=== PATIENT | male | born 1960 | race African-American/Black ===

== ENCOUNTER 2019-12-20 11:56 | Emergency (ER) | payer MEDICARE, OTHER ==
[~2019-12-20 11:56] MED LIST: METH10 PO
[2019-12-20 12:21] LABS: BASOPHILS % (AUTO) 0.4 % (0.0-2.0); EOSINOPHILS % (AUTO) 0 % (1.0-6.0); HEMATOCRIT 36.1 % (41-53); HEMOGLOBIN 12.2 g/dL (13.5-17.5); LYMPHOCYTES # (AUTO) 0.9 K/uL (1.0-4.8); LYMPHOCYTES % (AUTO) 9.2 % (22.0-44.0); MEAN CORPUSCULAR HEMOGLOBIN 34.7 pg (26.0-34.0); MEAN CORPUSCULAR HGB CONC 33.8 G/dL (31.0-37.0); MEAN CORPUSCULAR VOLUME 103 fL (80-100); MONOCYTES # (AUTO) 0.6 K/uL (0.1-1.0); MONOCYTES % (AUTO) 6.1 % (2.0-9.0); NEUTROPHILS # (AUTO) 8.6 K/uL (1.8-7.7); NEUTROPHILS % (AUTO) 84.3 % (40.0-70.0); PLATELET COUNT (AUTO) 271 K/uL (150-450); RED BLOOD CELL COUNT(AUTO) 3.52 MIL/uL (4.50-5.90); RED CELL DISTRIBUTION WIDTH 15.7 % (11.5-14.5)
[2019-12-20 12:30] LABS: ANION GAP 5 mmol/L (8-16); CALCIUM, TOTAL 8.8 mg/dL (8.8-10.5); CARBON DIOXIDE 34 mmol/L (22-29); CHLORIDE 93 mmol/L (98-107); GLOMERULAR FILTR. RATE CALC > 60 mL/min (>60); GLUCOSE,RANDOM 229 mg/dL (70-110); SODIUM SERUM 132 mmol/L (136-145); UREA NITROGEN, BLOOD 6 mg/dL (7-18)
[2019-12-20] MEDS ORDERED: ALTEPLASE PER STROKE PROTOCOL CLINICAL ONE (12:30)
[2019-12-20 12:35] LABS: INR 1.1 (0.9-1.1); PROTHROMBIN TIME 11.7 SEC (9.4-11.6)
[2019-12-20 12:36] LABS: ALANINE AMINOTRANSFERASE 44 U/L (12-78); ALBUMIN 2.1 g/dL (3.4-5.0); ALKALINE PHOSPHATASE 226 U/L (46-116); ASPARTATE AMINOTRANSFERASE 82 U/L (15-37); BILIRUBIN,TOTAL 0.8 mg/dL (0.1-1.0); TOTAL PROTEIN, SERUM 6.7 g/dL (6.4-8.2)
[2019-12-20] MEDS ORDERED: ALTEPLASE 81 MG in WATER FOR INJECTION,STERILE 81 ML IV ONE (12:45)
[2019-12-20] MEDS ORDERED: ALTEPLASE 9 MG in WATER FOR INJECTION,STERILE 9 ML IV ONE (12:45)
[2019-12-20] MEDS ORDERED: IOVERSOL 350 MG/ML 100 ML VIAL ONE (12:52)
[2019-12-20] MEDS ORDERED: SODIUM CHLORIDE 0.9% 100 ML ONE (12:52)
[2019-12-20 12:53] LABS: APPEARANCE,URINE CLOUDY (CLEAR); GLUCOSE, URINE (UA) NEGATIVE (NEGATIVE); KETONES,URINE TRACE mg/dL (NEGATIVE); LEUKOCYTE ESTERASE ,URINE SMALL (NEGATIVE); NITRATE,URINE NEGATIVE (NEGATIVE); OCCULT BLOOD,URINE SMALL (NEGATIVE); PROTEIN,URINE POS 1+ (NEGATIVE)
[2019-12-20 12:55] LABS: BILIRUBIN,URINE PRELIM. POSITIVE (NEGATIVE)
[2019-12-20 12:59] LABS: AMPHET/METH SCREEN,URINE NEGATIVE (NEGATIVE); BARBITURATE SCREEN, URINE NEGATIVE (NEGATIVE); BENZODIAZEPINES SCREEN,URINE POSITIVE (NEGATIVE); CANNABINOID SCREEN,URINE NEGATIVE (NEGATIVE); COCAINE SCREEN,URINE NEGATIVE (NEGATIVE); METHADONE SCREEN, URINE POSITIVE (NEGATIVE); OPIATE SCREEN,URINE POSITIVE (NEGATIVE); PHENCYCLIDINE SCREEN,URINE NEGATIVE (NEGATIVE)
[2019-12-20 13:01] LABS: BACTERIA,URINE Few /HPF (None Seen); SQUAMOUS EPITHELIAL CELL,UR Few /LPF (None Seen)
[2019-12-20] MEDS ORDERED: 0.9% SODIUM CHLORIDE 10 ML SYRINGE IVP PRN (13:30)
[2019-12-20] MEDS ORDERED: ACETAMINOPHEN 325 MG TABLET PO PRN ×2 (13:30→14:15)
[2019-12-20] MEDS ORDERED: ONDANSETRON HCL 4 MG/2 ML VIAL IVP PRN ×2 (13:30→14:15)
[2019-12-20 14:10] VITALS: BP 182/94
[2019-12-20] MEDS ORDERED: HYDROCODONE/ACETAMINOPHEN 5-325 MG TABLET PO PRN (14:15)
[2019-12-20] MEDS ORDERED: MAGNESIUM HYDROXIDE SUSPENSION 30 ML UDCUP PO PRN (14:15)
[2019-12-20] MEDS ORDERED: MORPHINE SULFATE 2 MG/ML SYRINGE IVP PRN (14:15)
[2019-12-20] MEDS ORDERED: ZOLPIDEM TARTRATE 5 MG TABLET PO PRN (14:15)
[2019-12-20] MEDS ORDERED: BISACODYL 10 MG RECTAL RECTAL SUPPOSITORY PR PRN (14:15)
[2019-12-20] MEDS ORDERED: POTASSIUM CHL 10 MEQ/WATER 50 ML IV PRN (14:30)
[2019-12-20] MEDS ORDERED: POTASSIUM CHLORIDE 20 MEQ ER TABLET PO PRN (14:30)
[2019-12-20] MEDS ORDERED: HydrALAZINE HCL 20 MG/ML VIAL IVP PRN (14:30)
[2019-12-20] MEDS ORDERED: ATORVASTATIN CALCIUM 20 MG TABLET PO SCH (21:00)
[2019-12-20] MEDS ORDERED: DOCUSATE SODIUM 100 MG CAPSULE PO SCH (21:00)
[2019-12-21] MEDS ORDERED: PANTOPRAZOLE SODIUM 40 MG DR TABLET PO SCH (09:00)
== END 2019-12-20 15:10 | disposition home or self-care (01) ==
LOC: EMS 11:58
DX: I63.9 Cerebral infarction, unspecified (principal); I82.403 Acute embolism and thrombosis of unspecified deep veins of lower extremity, bilateral; E87.6 Hypokalemia; R79.89 Other specified abnormal findings of blood chemistry; I10 Essential (primary) hypertension
CPT/HCPCS: 36415; 37195; 70450; 70496; 71045; 80053; 80307; 81001; 82962; 83036; 83880; 84484; 85025; 85610; 85730; 86850; 86900; 86901; 87077; 87086; 93005; 93970; 99291; 99292; J2997; J7050; Q9967

== ENCOUNTER 2020-05-30 08:41 | Emergency (ER) | payer MEDICARE, OTHER ==
[~2020-05-30] VITALS: Ht 167.6 cm; Wt 72.7 kg
[2020-05-30] MEDS ORDERED: ACETAMINOPHEN 500 MG TABLET PO ONE (10:15)
[2020-05-30] MEDS ORDERED: LEVE500S9 PO (10:16)
[2020-05-30] MEDS ORDERED: LISI-662 PO (10:16)
[2020-05-30] MEDS ORDERED: METO25 PO (10:16)
[2020-05-30] MEDS ORDERED: ASPI81TA39 PO (10:16)
[2020-05-30] MEDS ORDERED: FAMO20 PO (10:16)
[2020-05-30] MEDS ORDERED: AMLO-258 PO (10:16)
[2020-05-30] MEDS ORDERED: ATOR40TA28 PO (10:16)
[2020-05-30 10:26] LABS: GLUCOSE,POINT OF CARE 86 MG/DL (70-110)
[2020-05-30 10:35] LABS: EOSINOPHILS % (AUTO) 0.8 % (1.0-6.0); HEMATOCRIT 27.7 % (41-53); LYMPHOCYTES # (AUTO) 0.6 K/uL (1.0-4.8); LYMPHOCYTES % (AUTO) 19.1 % (22.0-44.0); MEAN CORPUSCULAR HEMOGLOBIN 28.8 pg (26.0-34.0); MEAN CORPUSCULAR HGB CONC 32.6 G/dL (31.0-37.0); MEAN CORPUSCULAR VOLUME 89 fL (80-100); MONOCYTES # (AUTO) 0.4 K/uL (0.1-1.0); MONOCYTES % (AUTO) 11.4 % (2.0-9.0); NEUTROPHILS # (AUTO) 2.1 K/uL (1.8-7.7); NEUTROPHILS % (AUTO) 67.7 % (40.0-70.0); PLATELET COUNT (AUTO) 134 K/uL (150-450); RED BLOOD CELL COUNT(AUTO) 3.13 MIL/uL (4.50-5.90); RED CELL DISTRIBUTION WIDTH 15.8 % (11.5-14.5)
[2020-05-30 10:43] LABS: ANION GAP 10 mmol/L (8-16); CALCIUM, TOTAL 8.7 mg/dL (8.8-10.5); CARBON DIOXIDE 27 mmol/L (22-29); CHLORIDE 101 mmol/L (98-107); CREATININE 1.18 mg/dL (0.60-1.30); GLOMERULAR FILTR. RATE CALC > 60 mL/min (>60); GLUCOSE,RANDOM 96 mg/dL (70-110); POTASSIUM 3.9 mmol/L (3.5-5.1); SODIUM SERUM 138 mmol/L (136-145); UREA NITROGEN, BLOOD 14 mg/dL (7-18)
[2020-05-30 10:49] LABS: ALANINE AMINOTRANSFERASE 41 U/L (12-78); ALKALINE PHOSPHATASE 89 U/L (46-116); ASPARTATE AMINOTRANSFERASE 53 U/L (15-37); BILIRUBIN,TOTAL 0.5 mg/dL (0.1-1.0); PHOSPHORUS 2.9 mg/dL (2.5-4.9); TOTAL PROTEIN, SERUM 6.8 g/dL (6.4-8.2)
[2020-05-30 11:36] LABS: COVID AG,FIA SOURCE NASOPHARYNGEAL
[2020-05-30 11:40] LABS: APPEARANCE,URINE CLEAR (CLEAR); BILIRUBIN,URINE NEGATIVE (NEGATIVE); GLUCOSE, URINE (UA) NEGATIVE (NEGATIVE); KETONES,URINE TRACE mg/dL (NEGATIVE); LEUKOCYTE ESTERASE ,URINE NEGATIVE (NEGATIVE); NITRATE,URINE NEGATIVE (NEGATIVE); OCCULT BLOOD,URINE NEGATIVE (NEGATIVE); PROTEIN,URINE NEGATIVE (NEGATIVE); UROBILINOGEN,URINE 0.2 mg/dL (<=1.0)
[2020-05-30 14:50] VITALS: BP 135/63
== END 2020-05-30 14:58 | disposition home or self-care (01) ==
LOC: EMS 08:53
DX: U07.1 COVID-19 (principal); R25.2 Cramp and spasm; R50.9 Fever, unspecified; F41.9 Anxiety disorder, unspecified; I10 Essential (primary) hypertension; Z86.73 Personal history of transient ischemic attack (TIA), and cerebral infarction without residual deficits; Z79.899 Other long term (current) drug therapy
CPT/HCPCS: 36415; 80053; 81003; 82962; 83735; 84100; 85025; 87426; 99283; U0003

== ENCOUNTER 2020-07-15 23:01 | Inpatient (IN) | payer MEDICARE, OTHER ==
[~2020-07-15] VITALS: Ht 182.9 cm; Wt 76.5 kg
[~2020-07-15 23:01] MED LIST changes: +AMLO-258 PO; +ASPI81TA39 PO; +ATOR40TA28 PO; +FAMO20 PO; +LEVE500S9 PO; +LISI-894 PO; +METO25 PO
[2020-07-15] MEDS ORDERED: BISACODYL 5 MG EC TABLET PO ONE (23:45)
[2020-07-16 00:49] LABS: HEMATOCRIT 30.3 % (41-53); HEMOGLOBIN 9.7 g/dL (13.5-17.5); MEAN CORPUSCULAR HEMOGLOBIN 28.2 pg (26.0-34.0); MEAN CORPUSCULAR VOLUME 88 fL (80-100); PLATELET COUNT (AUTO) 173 K/uL (150-450); RED BLOOD CELL COUNT(AUTO) 3.43 MIL/uL (4.50-5.90); RED CELL DISTRIBUTION WIDTH 15.8 % (11.5-14.5)
[2020-07-16 01:06] LABS: CREATININE 1.76 mg/dL (0.60-1.30); POTASSIUM 4.5 mmol/L (3.5-5.1)
[2020-07-16 01:12] LABS: ALBUMIN 3.5 g/dL (3.4-5.0); BILIRUBIN,TOTAL 0.3 mg/dL (0.1-1.0); TOTAL PROTEIN, SERUM 6.8 g/dL (6.4-8.2)
[2020-07-16 01:20] LABS: BAND NEUTROPHILS % (MANUAL) 31 % (0-5); LYMPHOCYTES % (MANUAL) 5 % (22-44); MONOCYTES % (MANUAL) 3 % (2-9); SEGMENTED NEUTROPHILS % 61 % (40-70)
[2020-07-16] MEDS ORDERED: LORazepam 2 MG TABLET PO ONE (01:45)
[2020-07-16] MEDS ORDERED: KETOROLAC TROMETHAMINE 30 MG/ML VIAL IM ONE (01:45)
[2020-07-16] MEDS: SODIUM CHLORIDE 0.9% 1,000 ML IV ONE ×2 (01:46→02:18)
[2020-07-16] MEDS ORDERED: LORazepam 2 MG/ML VIAL IVP ONE (03:15)
[2020-07-16] MEDS ORDERED: FAMOTIDINE 10 MG/ML 2 ML VIAL IVP ONE (03:15)
[2020-07-16] MEDS ORDERED: SODIUM CHLORIDE 0.9% 1,000 ML IV ONE ×4 (04:00→05:15)
[2020-07-16] MEDS ORDERED: MetroNIDAZOLE 750 MG/NACL 150 ML IV ONE (04:15)
[2020-07-16 04:21] LABS: PROTHROMBIN TIME 11.1 SEC (9.4-11.6)
[2020-07-16] MEDS ORDERED: PIPERACILLIN/TAZO 3.375 GM/D5W 50 ML IV SCH (04:30)
[2020-07-16 04:50] LABS: COVID AG,FIA SOURCE NASOPHARYNGEAL
[2020-07-16] MEDS ORDERED: PHENYLEPHRINE HCL 400 MG in DEXTROSE 5%-WATER 210 ML IV PRN (05:00)
[2020-07-16] MEDS ORDERED: RINGERS SOLUTION,LACTATED 2,000 ML IV ONE (05:15)
[2020-07-16] MEDS ORDERED: ACETAMINOPHEN 325 MG TABLET PO PRN ×2 (05:15→08:15)
[2020-07-16] MEDS ORDERED: ACETAMINOPHEN 1000 MG/ISO-OSM 100 ML IV ONE (05:15)
[2020-07-16] MEDS ORDERED: ONDANSETRON HCL 4 MG/2 ML VIAL IVP PRN ×3 (05:15→08:15)
[2020-07-16] MEDS ORDERED: SODIUM CHLORIDE 0.9% 100 ML ONE (05:19)
[2020-07-16] MEDS ORDERED: BUPIVACAINE HCL/PF 0.5% 30 ML VIAL ONE (05:33)
[2020-07-16] MEDS ORDERED: LIDOCAINE 2% 30 ML JELLY ONE (05:33)
[2020-07-16] MEDS ORDERED: LIDOCAINE/PF 2% 5 ML VIAL ONE (05:34)
[2020-07-16 05:48] LABS: APPEARANCE,URINE TURBID (CLEAR); BILIRUBIN,URINE NEGATIVE (NEGATIVE); GLUCOSE, URINE (UA) NEGATIVE (NEGATIVE); KETONES,URINE NEGATIVE (NEGATIVE); LEUKOCYTE ESTERASE ,URINE NEGATIVE (NEGATIVE); NITRATE,URINE NEGATIVE (NEGATIVE); OCCULT BLOOD,URINE LARGE (NEGATIVE); PROTEIN,URINE NEGATIVE (NEGATIVE); UROBILINOGEN,URINE 0.2 mg/dL (<=1.0)
[2020-07-16] MEDS ORDERED: HYDROmorphone 2 MG/ML VIAL IVP PRN (07:15)
[2020-07-16] MEDS ORDERED: BUPIVACAINE LIPOSOME/PF 1.3%-13.3MG/ML SUSPENSION 20 ML VIAL INJ ONE (07:15)
[2020-07-16] MEDS ORDERED: FentaNYL CITRATE PF 100 MCG/2 ML VIAL IVP PRN (07:15)
[2020-07-16] MEDS ORDERED: MORPHINE SULFATE 2 MG/ML SYRINGE IVP PRN (07:15)
[2020-07-16 07:34] LABS: BACTERIA,URINE Moderate /HPF (None Seen); WBC,URINE 0-2 /HPF (0-5)
[2020-07-16] MEDS: OXYGEN THERAPY IH SCH ×2 (08:00→20:44)
[2020-07-16] MEDS ORDERED: BISACODYL 10 MG RECTAL RECTAL SUPPOSITORY PR PRN (08:15)
[2020-07-16] MEDS ORDERED: MAGNESIUM HYDROXIDE SUSPENSION 30 ML UDCUP PO PRN (08:15)
[2020-07-16] MEDS: METOPROLOL TARTRATE 25 MG TABLET PO SCH ×2 (09:00→20:45)
[2020-07-16] MEDS: LISINOPRIL 20 MG TABLET PO SCH (09:00)
[2020-07-16] MEDS: DOCUSATE SODIUM 100 MG CAPSULE PO SCH ×2 (09:00→20:45)
[2020-07-16] MEDS ORDERED: LevETIRAcetam 100 MG/ML 5 ML SOLUTION UDCUP PO SCH (09:00)
[2020-07-16] MEDS: ASPIRIN 81 MG CHEWABLE TABLET PO SCH (09:00)
[2020-07-16] MEDS: PANTOPRAZOLE SODIUM 40 MG DR TABLET PO SCH (09:00)
[2020-07-16] MEDS: AmLODIPine BESYLATE 10 MG TABLET PO SCH (09:00)
[2020-07-16 09:27] VITALS: BP 144/63
[2020-07-16 10:22] LABS: APPEARANCE,URINE TURBID (CLEAR); BILIRUBIN,URINE NEGATIVE (NEGATIVE); GLUCOSE, URINE (UA) NEGATIVE (NEGATIVE); KETONES,URINE NEGATIVE (NEGATIVE); NITRATE,URINE NEGATIVE (NEGATIVE); OCCULT BLOOD,URINE LARGE (NEGATIVE); PROTEIN,URINE POS 1+ (NEGATIVE); UROBILINOGEN,URINE 0.2 mg/dL (<=1.0)
[2020-07-16 10:39] LABS: LEUKOCYTE ESTERASE ,URINE SMALL (NEGATIVE); RBC,URINE 51-100 /HPF (0-2)
[2020-07-16 10:40] LABS: BACTERIA,URINE Moderate /HPF (None Seen); SQUAMOUS EPITHELIAL CELL,UR Moderate /LPF (None Seen); YEAST,URINE Rare /HPF (None Seen)
[2020-07-16] MEDS: PIPERACILLIN/TAZO 3.375 GM/D5W 50 ML IV SCH ×3 (10:56→22:43)
[2020-07-16] MEDS: HYDROmorphone 2 MG/ML VIAL IVP PRN ×2 (16:04→20:50)
[2020-07-16 16:05] VITALS: BP 151/76
[2020-07-16] MEDS: HEPARIN SODIUM,PORCINE 5,000 UNITS/ML VIAL SQ SCH (16:30)
[2020-07-16] MEDS ORDERED: DEXTROSE 5%-0.45% SODIUM CHL 1,000 ML IV ONE (16:30)
[2020-07-16] MEDS ORDERED: LABETALOL HCL 5 MG/ML 20 ML VIAL IVP PRN (17:30)
[2020-07-16] MEDS: LevETIRAcetam 1,000 MG in DEXTROSE 5%-WATER 100 ML IV SCH (19:11)
[2020-07-16 20:10] VITALS: BP 138/66
[2020-07-16] MEDS: ATORVASTATIN CALCIUM 40 MG TABLET PO SCH (20:45)
[2020-07-16 22:06] VITALS: BP 143/68
[2020-07-16] MEDS: MORPHINE SULFATE 2 MG/ML SYRINGE IVP PRN (22:08)
[2020-07-16] MEDS ORDERED: SODIUM CHLORIDE 0.9% 500 ML IV ONE (22:39)
[2020-07-17] MEDS: HEPARIN SODIUM,PORCINE 5,000 UNITS/ML VIAL SQ SCH ×4 (00:19→23:54)
[2020-07-17] MEDS: HYDROmorphone 2 MG/ML VIAL IVP PRN ×5 (00:19→21:35)
[2020-07-17] MEDS: PIPERACILLIN/TAZO 3.375 GM/D5W 50 ML IV SCH ×4 (03:44→22:56)
[2020-07-17 05:11] VITALS: BP 158/74
[2020-07-17 06:04] LABS: BASOPHILS % (AUTO) 0.3 % (0.0-2.0); EOSINOPHILS % (AUTO) 0.5 % (1.0-6.0); HEMATOCRIT 28.4 % (41-53); HEMOGLOBIN 8.9 g/dL (13.5-17.5); LYMPHOCYTES % (AUTO) 11.6 % (22.0-44.0); MEAN CORPUSCULAR HEMOGLOBIN 28.7 pg (26.0-34.0); MEAN CORPUSCULAR HGB CONC 31.2 G/dL (31.0-37.0); MEAN CORPUSCULAR VOLUME 92 fL (80-100); MONOCYTES # (AUTO) 0.4 K/uL (0.1-1.0); MONOCYTES % (AUTO) 4.5 % (2.0-9.0); NEUTROPHILS # (AUTO) 7.4 K/uL (1.8-7.7); NEUTROPHILS % (AUTO) 83.1 % (40.0-70.0); PLATELET COUNT (AUTO) 143 K/uL (150-450); RED BLOOD CELL COUNT(AUTO) 3.08 MIL/uL (4.50-5.90); RED CELL DISTRIBUTION WIDTH 16.7 % (11.5-14.5)
[2020-07-17] MEDS ORDERED: 0.9% SODIUM CHLORIDE 10 ML VIAL IVP ONE (06:51)
[2020-07-17] MEDS ORDERED: ONDANSETRON HCL 4 MG/2 ML VIAL IVP ONE (06:51)
[2020-07-17] MEDS ORDERED: MIDAZOLAM HCL 2 MG/2 ML VIAL IVP ONE (06:51)
[2020-07-17] MEDS ORDERED: FentaNYL CITRATE PF 100 MCG/2 ML VIAL IVP ONE (06:51)
[2020-07-17] MEDS ORDERED: SUCCINYLCHOLINE CHLORIDE 20 MG/ML 10 ML VIAL IVP ONE (06:51)
[2020-07-17] MEDS ORDERED: LIDOCAINE/PF 2% 5 ML VIAL IM ONE (06:51)
[2020-07-17] MEDS ORDERED: HYDROmorphone 2 MG/ML VIAL IVP ONE (06:51)
[2020-07-17] MEDS ORDERED: ROCURONIUM BROMIDE 10 MG/ML 5 ML VIAL IVP ONE (06:51)
[2020-07-17] MEDS ORDERED: PHENYLEPHRINE HCL 10 MG/ML VIAL IVP ONE (06:51)
[2020-07-17] MEDS ORDERED: EPHEDrine SULFATE 50 MG/ML VIAL IM ONE (06:51)
[2020-07-17] MEDS ORDERED: PROPOFOL 1% 20 ML VIAL IVP ONE (06:51)
[2020-07-17] MEDS ORDERED: NEOSTIGMINE METHYLSULFATE 1 MG/ML 10 ML VIAL IVP ONE (06:51)
[2020-07-17 06:58] LABS: ANION GAP 9 mmol/L (8-16); CALCIUM, TOTAL 8.5 mg/dL (8.8-10.5); CARBON DIOXIDE 22 mmol/L (22-29); CHLORIDE 106 mmol/L (98-107); CREATININE 1.19 mg/dL (0.60-1.30); GLOMERULAR FILTR. RATE CALC > 60 mL/min (>60); GLUCOSE,RANDOM 115 mg/dL (70-110); POTASSIUM 4.6 mmol/L (3.5-5.1); SODIUM SERUM 137 mmol/L (136-145); UREA NITROGEN, BLOOD 18 mg/dL (7-18)
[2020-07-17 07:40] VITALS: BP 148/70
[2020-07-17] MEDS: OXYGEN THERAPY IH SCH ×2 (08:00→20:26)
[2020-07-17] MEDS: METOPROLOL TARTRATE 25 MG TABLET PO SCH ×2 (08:55→21:00)
[2020-07-17] MEDS: ASPIRIN 81 MG CHEWABLE TABLET PO SCH (08:55)
[2020-07-17] MEDS: DOCUSATE SODIUM 100 MG CAPSULE PO SCH ×2 (08:55→21:00)
[2020-07-17] MEDS: PANTOPRAZOLE SODIUM 40 MG DR TABLET PO SCH (08:56)
[2020-07-17] MEDS: LISINOPRIL 20 MG TABLET PO SCH (08:56)
[2020-07-17] MEDS: AmLODIPine BESYLATE 10 MG TABLET PO SCH (08:56)
[2020-07-17 11:02] VITALS: BP 152/74
[2020-07-17] MEDS: PANTOPRAZOLE SODIUM 40 MG/VIAL IVP SCH (15:24)
[2020-07-17 15:36] VITALS: BP 146/66
[2020-07-17] MEDS: MORPHINE SULFATE 2 MG/ML SYRINGE IVP PRN (17:30)
[2020-07-17] MEDS: LevETIRAcetam 1,000 MG in DEXTROSE 5%-WATER 100 ML IV SCH (18:28)
[2020-07-17 19:08] VITALS: BP 150/66
[2020-07-17] MEDS: ATORVASTATIN CALCIUM 40 MG TABLET PO SCH (21:00)
[2020-07-18] VITALS (7 sets, daily range): BP systolic 137–154; BP diastolic 43–77
[2020-07-18] MEDS: PIPERACILLIN/TAZO 3.375 GM/D5W 50 ML IV SCH ×4 (04:43→22:35)
[2020-07-18] MEDS: HYDROCODONE/ACETAMINOPHEN 5-325 MG TABLET PO PRN ×2 (05:46→12:12)
[2020-07-18] MEDS: OXYGEN THERAPY IH SCH ×2 (08:00→20:41)
[2020-07-18] MEDS: PANTOPRAZOLE SODIUM 40 MG/VIAL IVP SCH (08:48)
[2020-07-18] MEDS: LISINOPRIL 20 MG TABLET PO SCH (08:49)
[2020-07-18] MEDS: HEPARIN SODIUM,PORCINE 5,000 UNITS/ML VIAL SQ SCH ×2 (08:49→16:55)
[2020-07-18] MEDS: DOCUSATE SODIUM 100 MG CAPSULE PO SCH ×2 (08:49→20:42)
[2020-07-18] MEDS: AmLODIPine BESYLATE 10 MG TABLET PO SCH (08:49)
[2020-07-18] MEDS: ASPIRIN 81 MG CHEWABLE TABLET PO SCH (08:49)
[2020-07-18] MEDS: METOPROLOL TARTRATE 25 MG TABLET PO SCH ×2 (08:49→20:41)
[2020-07-18] MEDS: CefTRIAXone 1 GM/DEXTROSE 50 ML IV SCH (14:18)
[2020-07-18] MEDS: LevETIRAcetam 1,000 MG in DEXTROSE 5%-WATER 100 ML IV SCH (18:37)
[2020-07-18] MEDS: MORPHINE SULFATE 2 MG/ML SYRINGE IVP PRN (20:41)
[2020-07-18] MEDS: ATORVASTATIN CALCIUM 40 MG TABLET PO SCH (20:42)
[2020-07-19] MEDS: HEPARIN SODIUM,PORCINE 5,000 UNITS/ML VIAL SQ SCH ×5 (00:23→22:22)
[2020-07-19] MEDS: ZOLPIDEM TARTRATE 5 MG TABLET PO PRN ×2 (00:39→20:47)
[2020-07-19] MEDS: PIPERACILLIN/TAZO 3.375 GM/D5W 50 ML IV SCH ×4 (04:39→21:32)
[2020-07-19 04:58] VITALS: BP 131/62
[2020-07-19] MEDS: MORPHINE SULFATE 2 MG/ML SYRINGE IVP PRN ×2 (06:51→18:46)
[2020-07-19 07:01] VITALS: BP 143/60
[2020-07-19] MEDS: OXYGEN THERAPY IH SCH (08:00)
[2020-07-19] MEDS: PANTOPRAZOLE SODIUM 40 MG/VIAL IVP SCH (08:50)
[2020-07-19] MEDS: DOCUSATE SODIUM 100 MG CAPSULE PO SCH ×2 (08:50→20:19)
[2020-07-19] MEDS: ASPIRIN 81 MG CHEWABLE TABLET PO SCH (08:50)
[2020-07-19] MEDS: METOPROLOL TARTRATE 25 MG TABLET PO SCH ×2 (08:51→21:33)
[2020-07-19] MEDS: AmLODIPine BESYLATE 10 MG TABLET PO SCH (08:51)
[2020-07-19] MEDS: LISINOPRIL 20 MG TABLET PO SCH (08:51)
[2020-07-19 09:42] LABS: BASOPHILS % (AUTO) 0.6 % (0.0-2.0); EOSINOPHILS % (AUTO) 1.8 % (1.0-6.0); HEMATOCRIT 28.8 % (41-53); HEMOGLOBIN 9.5 g/dL (13.5-17.5); LYMPHOCYTES # (AUTO) 1.8 K/uL (1.0-4.8); LYMPHOCYTES % (AUTO) 23.7 % (22.0-44.0); MEAN CORPUSCULAR HEMOGLOBIN 28.3 pg (26.0-34.0); MEAN CORPUSCULAR VOLUME 86 fL (80-100); MONOCYTES # (AUTO) 0.4 K/uL (0.1-1.0); NEUTROPHILS # (AUTO) 5.1 K/uL (1.8-7.7); NEUTROPHILS % (AUTO) 68.9 % (40.0-70.0); PLATELET COUNT (AUTO) 185 K/uL (150-450); RED BLOOD CELL COUNT(AUTO) 3.36 MIL/uL (4.50-5.90); RED CELL DISTRIBUTION WIDTH 15.4 % (11.5-14.5)
[2020-07-19 09:56] LABS: ANION GAP 9 mmol/L (8-16); CALCIUM, TOTAL 8.3 mg/dL (8.8-10.5); CARBON DIOXIDE 25 mmol/L (22-29); CHLORIDE 108 mmol/L (98-107); CREATININE 1.17 mg/dL (0.60-1.30); GLOMERULAR FILTR. RATE CALC > 60 mL/min (>60); GLUCOSE,RANDOM 96 mg/dL (70-110); POTASSIUM 3.4 mmol/L (3.5-5.1); SODIUM SERUM 142 mmol/L (136-145); UREA NITROGEN, BLOOD 11 mg/dL (7-18)
[2020-07-19 11:09] VITALS: BP 137/61
[2020-07-19] MEDS ORDERED: POTASSIUM CHL 10 MEQ/WATER 50 ML IV PRN (11:30)
[2020-07-19] MEDS ORDERED: LEVE500T53 PO (11:32)
[2020-07-19] MEDS: CefTRIAXone 1 GM/DEXTROSE 50 ML IV SCH (13:25)
[2020-07-19] MEDS: POTASSIUM CHLORIDE 20 MEQ ER TABLET PO PRN ×2 (13:25→18:46)
[2020-07-19 15:51] VITALS: BP 136/57
[2020-07-19] MEDS: LevETIRAcetam 1,000 MG in DEXTROSE 5%-WATER 100 ML IV SCH (18:46)
[2020-07-19 19:54] VITALS: BP 137/57
[2020-07-19] MEDS: ATORVASTATIN CALCIUM 40 MG TABLET PO SCH (20:16)
[2020-07-19] MEDS: HYDROCODONE/ACETAMINOPHEN 5-325 MG TABLET PO PRN (20:16)
[2020-07-19 23:45] VITALS: BP 116/52
[2020-07-20] MEDS: MORPHINE SULFATE 2 MG/ML SYRINGE IVP PRN ×2 (00:42→08:33)
[2020-07-20] MEDS: PIPERACILLIN/TAZO 3.375 GM/D5W 50 ML IV SCH ×2 (03:06→10:07)
[2020-07-20] MEDS: HYDROCODONE/ACETAMINOPHEN 5-325 MG TABLET PO PRN ×2 (03:10→11:53)
[2020-07-20 04:14] VITALS: BP 133/51
[2020-07-20 07:35] VITALS: BP 122/58
[2020-07-20] MEDS: OXYGEN THERAPY IH SCH ×2 (08:00→09:34)
[2020-07-20] MEDS: AmLODIPine BESYLATE 10 MG TABLET PO SCH (08:31)
[2020-07-20] MEDS: ASPIRIN 81 MG CHEWABLE TABLET PO SCH (08:32)
[2020-07-20] MEDS: LISINOPRIL 20 MG TABLET PO SCH (08:32)
[2020-07-20] MEDS: METOPROLOL TARTRATE 25 MG TABLET PO SCH (08:32)
[2020-07-20] MEDS: HEPARIN SODIUM,PORCINE 5,000 UNITS/ML VIAL SQ SCH (08:33)
[2020-07-20] MEDS: PANTOPRAZOLE SODIUM 40 MG/VIAL IVP SCH (08:33)
[2020-07-20] MEDS: DOCUSATE SODIUM 100 MG CAPSULE PO SCH (08:36)
[2020-07-20 11:32] VITALS: BP 114/50
[2020-07-20] MEDS: CefTRIAXone 1 GM/DEXTROSE 50 ML IV SCH (12:00)
== END 2020-07-20 13:35 | DRG 329 ==
LOC: EMS 23:01 → 6N 07-16 05:02 → 5S 07-16 20:52
PROVIDERS: ADMIT Internal Medicine; ATTEND Internal Medicine
PROC: 0DTF0ZZ Resection of Right Large Intestine, Open Approach (ICD-10-PCS; principal; 2020-07-16 06:00)
DX: K55.9 Vascular disorder of intestine, unspecified (principal); R65.11 Systemic inflammatory response syndrome (SIRS) of non-infectious origin with acute organ dysfunction; N17.9 Acute kidney failure, unspecified; E44.0 Moderate protein-calorie malnutrition; N39.0 Urinary tract infection, site not specified; I69.354 Hemiplegia and hemiparesis following cerebral infarction affecting left non-dominant side; I96 Gangrene, not elsewhere classified; D63.8 Anemia in other chronic diseases classified elsewhere; I10 Essential (primary) hypertension; E87.6 Hypokalemia; F40.240 Claustrophobia; F11.11 Opioid abuse, in remission; Z20.822 Contact with and (suspected) exposure to COVID-19; F41.9 Anxiety disorder, unspecified; K21.9 Gastro-esophageal reflux disease without esophagitis; Z79.899 Other long term (current) drug therapy; Z79.82 Long term (current) use of aspirin; Z68.22 Body mass index [BMI] 22.0-22.9, adult
CPT/HCPCS: 74019; 74176; 76705; 83605; 84132; 87040; 87070; 87081; 87086; 87205; 87426; 88307; 93005; 97162; 97530; 99291; A9575; C9113; C9290; G0238; J0131; J0330; J0696; J0712; J1170; J1644; J1885; J2060; J2250; J2270; J2370; J2405; J2543; J2704; J3010; J3490; J7030; J7040; J7050; J7060; J7120

== ENCOUNTER 2020-12-05 03:21 | Emergency (ER) | payer MEDICARE, OTHER ==
[~2020-12-05] VITALS: Ht 182.9 cm; Wt 76.5 kg
[~2020-12-05 03:21] MED LIST changes: -LEVE500S9 PO; +LEVE500T53 PO; -METH10 PO
[2020-12-05 08:26] LABS: APPEARANCE,URINE CLEAR (CLEAR); BILIRUBIN,URINE NEGATIVE (NEGATIVE); GLUCOSE, URINE (UA) NEGATIVE (NEGATIVE); KETONES,URINE NEGATIVE (NEGATIVE); LEUKOCYTE ESTERASE ,URINE NEGATIVE (NEGATIVE); NITRATE,URINE NEGATIVE (NEGATIVE); OCCULT BLOOD,URINE NEGATIVE (NEGATIVE); PH,URINE 6.5 (5.0-8.0); PROTEIN,URINE NEGATIVE (NEGATIVE)
[2020-12-05 09:02] LABS: COVID AG,FIA SOURCE NASOPHARYNGEAL
[2020-12-05 09:27] LABS: BASOPHILS % (AUTO) 0.6 % (0.0-2.0); EOSINOPHILS % (AUTO) 0.8 % (1.0-6.0); HEMATOCRIT 30.3 % (41-53); LYMPHOCYTES # (AUTO) 1.9 K/uL (1.0-4.8); LYMPHOCYTES % (AUTO) 22.6 % (22.0-44.0); MEAN CORPUSCULAR HEMOGLOBIN 28.8 pg (26.0-34.0); MEAN CORPUSCULAR HGB CONC 32.9 G/dL (31.0-37.0); MEAN CORPUSCULAR VOLUME 88 fL (80-100); MONOCYTES # (AUTO) 0.4 K/uL (0.1-1.0); MONOCYTES % (AUTO) 5.3 % (2.0-9.0); NEUTROPHILS # (AUTO) 5.9 K/uL (1.8-7.7); NEUTROPHILS % (AUTO) 70.7 % (40.0-70.0); PLATELET COUNT (AUTO) 257 K/uL (150-450); RED BLOOD CELL COUNT(AUTO) 3.46 MIL/uL (4.50-5.90); RED CELL DISTRIBUTION WIDTH 14.6 % (11.5-14.5)
[2020-12-05 09:38] LABS: ANION GAP 6 mmol/L (8-16); CALCIUM, TOTAL 9.1 mg/dL (8.8-10.5); CARBON DIOXIDE 29 mmol/L (22-29); CHLORIDE 100 mmol/L (98-107); CREATININE 0.93 mg/dL (0.60-1.30); GLOMERULAR FILTR. RATE CALC > 60 mL/min (>60); GLUCOSE,RANDOM 92 mg/dL (70-110); POTASSIUM 3.9 mmol/L (3.5-5.1); SODIUM SERUM 135 mmol/L (136-145); UREA NITROGEN, BLOOD 20 mg/dL (7-18)
[2020-12-05 09:44] LABS: ALANINE AMINOTRANSFERASE 19 U/L (12-78); ALBUMIN 2.9 g/dL (3.4-5.0); ALKALINE PHOSPHATASE 83 U/L (46-116); ASPARTATE AMINOTRANSFERASE 17 U/L (15-37); BILIRUBIN,TOTAL 0.3 mg/dL (0.1-1.0); TOTAL PROTEIN, SERUM 6.9 g/dL (6.4-8.2)
[2020-12-05 11:15] VITALS: BP 141/81
== END 2020-12-05 11:53 | disposition home or self-care (01) ==
LOC: EMS 03:21
DX: M54.5 Low back pain (principal); I10 Essential (primary) hypertension; F41.9 Anxiety disorder, unspecified; Z20.822 Contact with and (suspected) exposure to COVID-19; Z86.73 Personal history of transient ischemic attack (TIA), and cerebral infarction without residual deficits; Z79.899 Other long term (current) drug therapy
CPT/HCPCS: 71045; 80053; 81003; 85025; 99285; 36415-L1; 36415-TC

== ENCOUNTER 2021-01-07 19:28 | Inpatient (IN) | payer MEDICARE, OTHER ==
[~2021-01-07] VITALS: Ht 182.9 cm; Wt 81.3 kg
[2021-01-07] MEDS ORDERED: VANCOMYCIN HCL 1 GM/D5% WATER 200 ML IV ONE (22:15)
[2021-01-07 22:46] LABS: COVID AG,FIA SOURCE NASOPHARYNGEAL
[2021-01-07 22:51] LABS: BASOPHILS % (AUTO) 0.8 % (0.0-2.0); EOSINOPHILS % (AUTO) 1.1 % (1.0-6.0); HEMATOCRIT 32.7 % (41-53); HEMOGLOBIN 10.7 g/dL (13.5-17.5); LYMPHOCYTES # (AUTO) 1.9 K/uL (1.0-4.8); LYMPHOCYTES % (AUTO) 21.6 % (22.0-44.0); MEAN CORPUSCULAR HEMOGLOBIN 28.3 pg (26.0-34.0); MEAN CORPUSCULAR HGB CONC 32.8 G/dL (31.0-37.0); MEAN CORPUSCULAR VOLUME 87 fL (80-100); MONOCYTES # (AUTO) 0.5 K/uL (0.1-1.0); MONOCYTES % (AUTO) 6.1 % (2.0-9.0); NEUTROPHILS # (AUTO) 6.1 K/uL (1.8-7.7); NEUTROPHILS % (AUTO) 70.4 % (40.0-70.0); PLATELET COUNT (AUTO) 258 K/uL (150-450); RED BLOOD CELL COUNT(AUTO) 3.79 MIL/uL (4.50-5.90)
[2021-01-07 22:58] LABS: ANION GAP 8 mmol/L (8-16); CALCIUM, TOTAL 9.1 mg/dL (8.8-10.5); CARBON DIOXIDE 28 mmol/L (22-29); CHLORIDE 101 mmol/L (98-107); CREATININE 1.29 mg/dL (0.60-1.30); GLOMERULAR FILTR. RATE CALC > 60 mL/min (>60); GLUCOSE,RANDOM 81 mg/dL (70-110); POTASSIUM 4.3 mmol/L (3.5-5.1); SODIUM SERUM 137 mmol/L (136-145); UREA NITROGEN, BLOOD 30 mg/dL (7-18)
[2021-01-07 23:03] LABS: PROTHROMBIN TIME 10.6 SEC (9.4-11.6)
[2021-01-07 23:15] LABS: B-TYPE NATRIURETIC PEPTIDE < 5 pg/mL (0-100)
[2021-01-07 23:23] LABS: ALANINE AMINOTRANSFERASE 18 U/L (12-78); ALBUMIN 3.7 g/dL (3.4-5.0); ALKALINE PHOSPHATASE 80 U/L (46-116); ASPARTATE AMINOTRANSFERASE 30 U/L (15-37); BILIRUBIN,TOTAL 0.5 mg/dL (0.1-1.0); CREATINE KINASE, TOTAL ONLY 475 U/L (39-308); TOTAL PROTEIN, SERUM 7.9 g/dL (6.4-8.2)
[2021-01-08] MEDS ORDERED: LevETIRAcetam 500 MG TABLET PO ONE (00:45)
[2021-01-08] MEDS ORDERED: GABAPENTIN 100 MG CAPSULE PO ONE (00:45)
[2021-01-08] MEDS ORDERED: ONDANSETRON HCL 4 MG/2 ML VIAL IVP PRN (01:15)
[2021-01-08] MEDS ORDERED: ACETAMINOPHEN 325 MG TABLET PO PRN (01:15)
[2021-01-08 01:40] LABS: RETICULOCYTE % (AUTO) 0.7 % (0.5-2.3)
[2021-01-08 02:07] LABS: % IRON SATURATION 31.8 % (30-44)
[2021-01-08] MEDS ORDERED: SODIUM CHLORIDE 0.9% 100 ML ONE (02:41)
[2021-01-08] MEDS ORDERED: IOHEXOL 350 MG/ML 100 ML VIAL ONE (02:42)
[2021-01-08] MEDS ORDERED: HEPARIN SODIUM,PORCINE 5,000 UNITS/ML VIAL IVP ONE ×2 (04:30→05:30)
[2021-01-08] MEDS ORDERED: HEPARIN SODIUM,PORCINE 5,000 UNITS/ML VIAL IVP PRN ×3 (04:30→05:16)
[2021-01-08] MEDS ORDERED: HEPARIN SODIUM 25000 UNITS/D5W 250 ML IV PRN (04:30)
[2021-01-08 04:38] LABS: EOSINOPHILS % (AUTO) 1.2 % (1.0-6.0); HEMATOCRIT 29.5 % (41-53); HEMOGLOBIN 9.6 g/dL (13.5-17.5); LYMPHOCYTES # (AUTO) 1.6 K/uL (1.0-4.8); LYMPHOCYTES % (AUTO) 24.1 % (22.0-44.0); MEAN CORPUSCULAR HEMOGLOBIN 28.2 pg (26.0-34.0); MEAN CORPUSCULAR HGB CONC 32.7 G/dL (31.0-37.0); MEAN CORPUSCULAR VOLUME 86 fL (80-100); MONOCYTES # (AUTO) 0.3 K/uL (0.1-1.0); MONOCYTES % (AUTO) 5.2 % (2.0-9.0); NEUTROPHILS # (AUTO) 4.5 K/uL (1.8-7.7); NEUTROPHILS % (AUTO) 68.5 % (40.0-70.0); PLATELET COUNT (AUTO) 211 K/uL (150-450); RED BLOOD CELL COUNT(AUTO) 3.42 MIL/uL (4.50-5.90)
[2021-01-08 05:59] LABS: PROTHROMBIN TIME 10.7 SEC (9.4-11.6)
[2021-01-08] MEDS: MORPHINE SULFATE 2 MG/ML SYRINGE IVP PRN ×3 (06:01→20:25)
[2021-01-08 08:12] LABS: APPEARANCE,URINE CLEAR (CLEAR); BILIRUBIN,URINE NEGATIVE (NEGATIVE); GLUCOSE, URINE (UA) NEGATIVE (NEGATIVE); KETONES,URINE NEGATIVE (NEGATIVE); LEUKOCYTE ESTERASE ,URINE NEGATIVE (NEGATIVE); NITRATE,URINE NEGATIVE (NEGATIVE); OCCULT BLOOD,URINE NEGATIVE (NEGATIVE); PROTEIN,URINE NEGATIVE (NEGATIVE)
[2021-01-08] MEDS ORDERED: FAMOTIDINE 20 MG TABLET PO SCH (09:00)
[2021-01-08] MEDS ORDERED: AmLODIPine BESYLATE 10 MG TABLET PO SCH (09:00)
[2021-01-08] MEDS ORDERED: ASPIRIN 81 MG CHEWABLE TABLET PO SCH (09:00)
[2021-01-08] MEDS ORDERED: LISINOPRIL 20 MG TABLET PO SCH (09:00)
[2021-01-08] MEDS: LevETIRAcetam 500 MG TABLET PO SCH ×2 (09:05→20:24)
[2021-01-08] MEDS: METOPROLOL TARTRATE 25 MG TABLET PO SCH ×2 (09:05→20:24)
[2021-01-08 16:49] VITALS: BP 124/58
[2021-01-08 20:19] VITALS: BP 128/57
[2021-01-08] MEDS ORDERED: ATORVASTATIN CALCIUM 40 MG TABLET PO SCH (21:00)
[2021-01-08] MEDS ORDERED: GABAPENTIN 100 MG CAPSULE PO SCH (21:00)
[2021-01-08] MEDS ORDERED: MELATONIN 5 MG TABLET PO PRN (21:15)
== END 2021-01-08 23:00 | disposition left against medical advice (07) | DRG 300 ==
LOC: EMS 19:33 → 5S 01-08 01:14
PROVIDERS: ADMIT Internal Medicine; ATTEND Internal Medicine
DX: I82.401 Acute embolism and thrombosis of unspecified deep veins of right lower extremity (principal); I69.354 Hemiplegia and hemiparesis following cerebral infarction affecting left non-dominant side; D64.9 Anemia, unspecified; I10 Essential (primary) hypertension; Z20.822 Contact with and (suspected) exposure to COVID-19; F41.9 Anxiety disorder, unspecified; Z53.29 Procedure and treatment not carried out because of patient's decision for other reasons; E78.5 Hyperlipidemia, unspecified; G40.909 Epilepsy, unspecified, not intractable, without status epilepticus; Z99.3 Dependence on wheelchair
CPT/HCPCS: 71045; 80053; 81003; 82550; 83540; 83550; 83880; 84484; 85025; 85045; 85610; 85730; 87040; 93005; 93970; 99285; G0378; J1644; J2270; J3370; J7050; Q9967; 36415-L1; 36415-TC

== ENCOUNTER 2021-04-20 20:11 | Inpatient (IN) | payer MEDICARE, OTHER ==
[~2021-04-20] VITALS: Ht 182.9 cm; Wt 68.7 kg
[~2021-04-20 20:11] MED LIST changes: +LEVE500T20 PO; -LEVE500T53 PO
[2021-04-20 22:45] LABS: EOSINOPHILS % (AUTO) 1.6 % (1.0-6.0); HEMATOCRIT 33.6 % (41-53); HEMOGLOBIN 11.1 g/dL (13.5-17.5); LYMPHOCYTES # (AUTO) 1.5 K/uL (1.0-4.8); LYMPHOCYTES % (AUTO) 26.1 % (22.0-44.0); MEAN CORPUSCULAR HEMOGLOBIN 28.2 pg (26.0-34.0); MEAN CORPUSCULAR VOLUME 86 fL (80-100); MONOCYTES # (AUTO) 0.2 K/uL (0.1-1.0); MONOCYTES % (AUTO) 3.4 % (2.0-9.0); NEUTROPHILS # (AUTO) 3.8 K/uL (1.8-7.7); NEUTROPHILS % (AUTO) 67.9 % (40.0-70.0); PLATELET COUNT (AUTO) 260 K/uL (150-450); RED BLOOD CELL COUNT(AUTO) 3.93 MIL/uL (4.50-5.90)
[2021-04-20 22:53] LABS: ANION GAP 10 mmol/L (8-16); CALCIUM, TOTAL 9.2 mg/dL (8.8-10.5); CARBON DIOXIDE 26 mmol/L (22-29); CHLORIDE 107 mmol/L (98-107); CREATININE 1.16 mg/dL (0.60-1.30); GLOMERULAR FILTR. RATE CALC > 60 mL/min (>60); GLUCOSE,RANDOM 119 mg/dL (70-110); SODIUM SERUM 143 mmol/L (136-145); UREA NITROGEN, BLOOD 15 mg/dL (7-18)
[2021-04-20 23:03] LABS: ALANINE AMINOTRANSFERASE 13 U/L (12-78); ALBUMIN 3.6 g/dL (3.4-5.0); ALKALINE PHOSPHATASE 80 U/L (46-116); ASPARTATE AMINOTRANSFERASE 23 U/L (15-37); BILIRUBIN,TOTAL 0.3 mg/dL (0.1-1.0); CREATINE KINASE, TOTAL ONLY 423 U/L (39-308); TOTAL PROTEIN, SERUM 7.4 g/dL (6.4-8.2)
[2021-04-20] MEDS ORDERED: POTASSIUM CHLORIDE 20 MEQ ER TABLET PO ONE (23:30)
[2021-04-21] MEDS ORDERED: OxyCODONE HCL 10 MG ER TABLET PO ONE (04:00)
[2021-04-21] MEDS ORDERED: SODIUM CHLORIDE 0.9% 1,000 ML IV ONE (09:30)
[2021-04-21] MEDS ORDERED: 0.9% SODIUM CHLORIDE 10 ML SYRINGE IVP PRN (10:00)
[2021-04-21] MEDS ORDERED: POTASSIUM CHLORIDE 20 MEQ ER TABLET PO ONE (10:00)
[2021-04-21 11:07] LABS: COVID AG,FIA SOURCE NASOPHARYNGEAL
[2021-04-21] MEDS ORDERED: ONDANSETRON HCL 4 MG/2 ML VIAL IVP PRN (13:30)
[2021-04-21] MEDS ORDERED: ACETAMINOPHEN 325 MG TABLET PO PRN (13:30)
[2021-04-21] MEDS ORDERED: MAGNESIUM HYDROXIDE SUSPENSION 30 ML UDCUP PO PRN (13:30)
[2021-04-21] MEDS ORDERED: BISACODYL 10 MG RECTAL RECTAL SUPPOSITORY PR PRN (13:30)
[2021-04-21] MEDS ORDERED: ZOLPIDEM TARTRATE 5 MG TABLET PO PRN (13:30)
[2021-04-21] MEDS: HEPARIN SODIUM,PORCINE 5,000 UNITS/ML VIAL SQ SCH ×2 (15:12→23:02)
[2021-04-21] MEDS: MORPHINE SULFATE 2 MG/ML SYRINGE IVP PRN ×2 (18:04→23:02)
[2021-04-21] MEDS ORDERED: ATORVASTATIN CALCIUM 40 MG TABLET PO SCH (21:00)
[2021-04-21] MEDS: METOPROLOL TARTRATE 25 MG TABLET PO SCH (21:49)
[2021-04-21] MEDS: LevETIRAcetam 500 MG TABLET PO SCH (21:50)
[2021-04-21] MEDS: DOCUSATE SODIUM 100 MG CAPSULE PO SCH (21:50)
[2021-04-21] MEDS: HYDROCODONE/ACETAMINOPHEN 5-325 MG TABLET PO PRN (21:50)
[2021-04-21 21:58] VITALS: BP 157/72
[2021-04-21] MEDS ORDERED: INFLUENZA VIRUS VACCINE QVS 2021-22 (6MO+)/PF 60 MCG/0.5 ML SYRINGE IM. ONE (23:00)
[2021-04-22] MEDS: HYDROCODONE/ACETAMINOPHEN 5-325 MG TABLET PO PRN (01:59)
[2021-04-22 02:43] LABS: APPEARANCE,URINE CLEAR (CLEAR); BILIRUBIN,URINE NEGATIVE (NEGATIVE); GLUCOSE, URINE (UA) NEGATIVE (NEGATIVE); KETONES,URINE TRACE mg/dL (NEGATIVE); LEUKOCYTE ESTERASE ,URINE NEGATIVE (NEGATIVE); NITRATE,URINE NEGATIVE (NEGATIVE); OCCULT BLOOD,URINE SMALL (NEGATIVE); PH,URINE 5.5 (5.0-8.0); PROTEIN,URINE NEGATIVE (NEGATIVE); UROBILINOGEN,URINE 0.2 mg/dL (<=1.0)
[2021-04-22] MEDS: MORPHINE SULFATE 2 MG/ML SYRINGE IVP PRN (03:36)
[2021-04-22 05:45] VITALS: BP 146/68
[2021-04-22 07:04] LABS: AMORPHOUS SEDIMENT,UR Many /LPF (None Seen); BACTERIA,URINE None Seen /HPF (None Seen); CALCIUM OXALATE CRYSTALS,UR Few /LPF (None Seen); RBC,URINE None Seen /HPF (0-2); SQUAMOUS EPITHELIAL CELL,UR Few /LPF (None Seen); WBC,URINE None Seen /HPF (0-5)
[2021-04-22 08:23] VITALS: BP 152/62
[2021-04-22] MEDS: HEPARIN SODIUM,PORCINE 5,000 UNITS/ML VIAL SQ SCH ×2 (08:36→16:00)
[2021-04-22] MEDS: DOCUSATE SODIUM 100 MG CAPSULE PO SCH (08:37)
[2021-04-22] MEDS: LevETIRAcetam 500 MG TABLET PO SCH (08:37)
[2021-04-22] MEDS: METOPROLOL TARTRATE 25 MG TABLET PO SCH (08:38)
[2021-04-22] MEDS ORDERED: ASPIRIN 81 MG CHEWABLE TABLET PO SCH (09:00)
[2021-04-22] MEDS ORDERED: AmLODIPine BESYLATE 10 MG TABLET PO SCH (09:00)
[2021-04-22] MEDS ORDERED: PANTOPRAZOLE SODIUM 40 MG DR TABLET PO SCH (09:00)
[2021-04-22] MEDS ORDERED: LISINOPRIL 20 MG TABLET PO SCH (09:00)
== END 2021-04-22 17:42 | disposition left against medical advice (07) | DRG 641 ==
LOC: EMS 20:13 → 6N 04-21 18:55
PROVIDERS: ADMIT Internal Medicine; ATTEND Internal Medicine
DX: E86.0 Dehydration (principal); M62.82 Rhabdomyolysis; I69.354 Hemiplegia and hemiparesis following cerebral infarction affecting left non-dominant side; E87.6 Hypokalemia; E78.5 Hyperlipidemia, unspecified; F41.9 Anxiety disorder, unspecified; M54.50 Low back pain, unspecified; R45.1 Restlessness and agitation; Z20.822 Contact with and (suspected) exposure to COVID-19; Z60.2 Problems related to living alone; Z53.29 Procedure and treatment not carried out because of patient's decision for other reasons; G40.909 Epilepsy, unspecified, not intractable, without status epilepticus; G89.29 Other chronic pain; I10 Essential (primary) hypertension; L89.151 Pressure ulcer of sacral region, stage 1; R62.7 Adult failure to thrive; Z86.718 Personal history of other venous thrombosis and embolism; Z99.3 Dependence on wheelchair; Z74.01 Bed confinement status; Z79.899 Other long term (current) drug therapy; Z68.20 Body mass index [BMI] 20.0-20.9, adult; Z79.82 Long term (current) use of aspirin
CPT/HCPCS: 80053; 81001; 82550; 84132; 85025; 96360; 96372; 97162; 97530; 99285; J1644; J2270; 36415-L1; 36415-TC

== ENCOUNTER 2021-07-06 00:20 | Inpatient (IN) | payer MEDICARE, OTHER ==
[~2021-07-06] VITALS: Ht 170.2 cm; Wt 63.0 kg
[2021-07-06] MEDS ORDERED: NITROGLYCERIN 0.4 MG SUBLINGUAL TABLET #25 SL ONE (01:30)
[2021-07-06] MEDS ORDERED: ASPIRIN 325 MG TABLET PO ONE (01:30)
[2021-07-06] MEDS ORDERED: GABAPENTIN 300 MG CAPSULE PO ONE ×2 (01:30→09:00)
[2021-07-06 02:23] LABS: BASOPHILS % (AUTO) 0.9 % (0.0-2.0); EOSINOPHILS % (AUTO) 1.2 % (1.0-6.0); HEMATOCRIT 34.5 % (41-53); HEMOGLOBIN 11.7 g/dL (13.5-17.5); LYMPHOCYTES # (AUTO) 2.7 K/uL (1.0-4.8); MEAN CORPUSCULAR HEMOGLOBIN 28.3 pg (26.0-34.0); MEAN CORPUSCULAR HGB CONC 33.9 G/dL (31.0-37.0); MEAN CORPUSCULAR VOLUME 84 fL (80-100); MONOCYTES # (AUTO) 0.3 K/uL (0.1-1.0); MONOCYTES % (AUTO) 4.1 % (2.0-9.0); NEUTROPHILS # (AUTO) 3.6 K/uL (1.8-7.7); NEUTROPHILS % (AUTO) 53.8 % (40.0-70.0); PLATELET COUNT (AUTO) 281 K/uL (150-450); RED BLOOD CELL COUNT(AUTO) 4.13 MIL/uL (4.50-5.90); RED CELL DISTRIBUTION WIDTH 16.7 % (11.5-14.5)
[2021-07-06] MEDS ORDERED: ACETAMINOPHEN 325 MG TABLET PO PRN ×2 (02:30→12:15)
[2021-07-06] MEDS ORDERED: ONDANSETRON HCL 4 MG/2 ML VIAL IVP PRN (02:30)
[2021-07-06] MEDS ORDERED: 0.9% SODIUM CHLORIDE 10 ML SYRINGE IVP PRN (02:30)
[2021-07-06 02:34] LABS: APPEARANCE,URINE CLEAR (CLEAR); BILIRUBIN,URINE NEGATIVE (NEGATIVE); GLUCOSE, URINE (UA) NEGATIVE (NEGATIVE); KETONES,URINE NEGATIVE (NEGATIVE); LEUKOCYTE ESTERASE ,URINE NEGATIVE (NEGATIVE); NITRATE,URINE NEGATIVE (NEGATIVE); OCCULT BLOOD,URINE TRACE (NEGATIVE); PH,URINE 6.5 (5.0-8.0); PROTEIN,URINE NEGATIVE (NEGATIVE)
[2021-07-06 02:41] LABS: LACTIC ACID 1.9 mmol/L (0.4-2.0)
[2021-07-06 02:42] LABS: ANION GAP 12 mmol/L (8-16); B-TYPE NATRIURETIC PEPTIDE 15 pg/mL (0-100); CALCIUM, TOTAL 9.4 mg/dL (8.8-10.5); CARBON DIOXIDE 27 mmol/L (22-29); CHLORIDE 104 mmol/L (98-107); CREATININE 1.02 mg/dL (0.60-1.30); GLOMERULAR FILTR. RATE CALC > 60 mL/min (>60); GLUCOSE,RANDOM 95 mg/dL (70-110); POTASSIUM 3.1 mmol/L (3.5-5.1); SODIUM SERUM 143 mmol/L (136-145); UREA NITROGEN, BLOOD 12 mg/dL (7-18)
[2021-07-06 02:44] LABS: BACTERIA,URINE None Seen /HPF (None Seen); RBC,URINE 0-2 /HPF (0-2); WBC,URINE None Seen /HPF (0-5)
[2021-07-06 02:47] LABS: AMPHET/METH SCREEN,URINE NEGATIVE (NEGATIVE); BARBITURATE SCREEN, URINE NEGATIVE (NEGATIVE); BENZODIAZEPINES SCREEN,URINE POSITIVE (NEGATIVE); CANNABINOID SCREEN,URINE POSITIVE (NEGATIVE); COCAINE SCREEN,URINE POSITIVE (NEGATIVE); METHADONE SCREEN, URINE NEGATIVE (NEGATIVE); OPIATE SCREEN,URINE NEGATIVE (NEGATIVE)
[2021-07-06 02:48] LABS: PHENCYCLIDINE SCREEN,URINE NEGATIVE (NEGATIVE)
[2021-07-06 02:57] LABS: ALANINE AMINOTRANSFERASE 19 U/L (12-78); ALBUMIN 3.7 g/dL (3.4-5.0); ALKALINE PHOSPHATASE 81 U/L (46-116); ASPARTATE AMINOTRANSFERASE 16 U/L (15-37); BILIRUBIN,TOTAL 0.4 mg/dL (0.1-1.0); CREATINE KINASE, TOTAL ONLY 105 U/L (39-308); LIPASE 133 U/L (73-393); TOTAL PROTEIN, SERUM 7.8 g/dL (6.4-8.2)
[2021-07-06 03:19] LABS: COVID AG,FIA SOURCE NASOPHARYNGEAL
[2021-07-06 04:00] VITALS: BP 138/68
[2021-07-06] MEDS ORDERED: POTASSIUM CHLORIDE 20 MEQ ER TABLET PO ONE (04:45)
[2021-07-06 08:12] VITALS: BP 109/56
[2021-07-06] MEDS ORDERED: OxyCODONE HCL/ACETAMINOPHEN 5-325 MG TABLET PO PRN (12:15)
[2021-07-06 12:45] VITALS: BP 114/60
[2021-07-06] MEDS: OxyCODONE HCL/ACETAMINOPHEN 5-325 MG TABLET PO PRN ×3 (12:58→21:40)
[2021-07-06 15:14] VITALS: BP 111/48
[2021-07-06] MEDS: HEPARIN SODIUM,PORCINE 5,000 UNITS/ML VIAL SQ SCH ×2 (16:00→23:24)
[2021-07-06 19:32] VITALS: BP 107/47
[2021-07-06] MEDS: ATORVASTATIN CALCIUM 20 MG TABLET PO SCH (20:20)
[2021-07-06] MEDS: DOCUSATE SODIUM 100 MG CAPSULE PO SCH (20:20)
[2021-07-07 00:57] VITALS: BP 117/68
[2021-07-07] MEDS: OxyCODONE HCL/ACETAMINOPHEN 5-325 MG TABLET PO PRN ×3 (03:52→20:14)
[2021-07-07 04:56] VITALS: BP 113/53
[2021-07-07] MEDS: ASPIRIN 81 MG CHEWABLE TABLET PO SCH (07:24)
[2021-07-07] MEDS: GABAPENTIN 300 MG CAPSULE PO SCH ×3 (07:24→20:14)
[2021-07-07] MEDS: DOCUSATE SODIUM 100 MG CAPSULE PO SCH ×2 (07:24→20:14)
[2021-07-07] MEDS: HEPARIN SODIUM,PORCINE 5,000 UNITS/ML VIAL SQ SCH ×3 (07:24→23:32)
[2021-07-07] MEDS: FAMOTIDINE 20 MG TABLET PO SCH (07:24)
[2021-07-07 08:42] VITALS: BP 113/51
[2021-07-07 12:50] VITALS: BP 121/58
[2021-07-07] MEDS: ATORVASTATIN CALCIUM 20 MG TABLET PO SCH (20:14)
[2021-07-08] MEDS: OxyCODONE HCL/ACETAMINOPHEN 5-325 MG TABLET PO PRN ×2 (01:02→09:44)
[2021-07-08 05:34] VITALS: BP 102/43
[2021-07-08] MEDS: HEPARIN SODIUM,PORCINE 5,000 UNITS/ML VIAL SQ SCH ×2 (08:00→09:30)
[2021-07-08] MEDS: DOCUSATE SODIUM 100 MG CAPSULE PO SCH (09:00)
[2021-07-08] MEDS: GABAPENTIN 300 MG CAPSULE PO SCH (09:30)
[2021-07-08] MEDS: ASPIRIN 81 MG CHEWABLE TABLET PO SCH (09:31)
[2021-07-08] MEDS: FAMOTIDINE 20 MG TABLET PO SCH (09:32)
[2021-07-08 12:00] VITALS: BP 115/50
== END 2021-07-08 14:30 | disposition home or self-care (01) | DRG 307 ==
LOC: EMS 00:21 → 5N 02:00
PROVIDERS: ADMIT Hospitalist; ATTEND Hospitalist
DX: I35.1 Nonrheumatic aortic (valve) insufficiency (principal); I69.354 Hemiplegia and hemiparesis following cerebral infarction affecting left non-dominant side; I50.32 Chronic diastolic (congestive) heart failure; R07.89 Other chest pain; R62.7 Adult failure to thrive; I11.0 Hypertensive heart disease with heart failure; F15.10 Other stimulant abuse, uncomplicated; F41.9 Anxiety disorder, unspecified; M54.9 Dorsalgia, unspecified; Z20.822 Contact with and (suspected) exposure to COVID-19; G89.29 Other chronic pain; Z91.19 Patient's noncompliance with other medical treatment and regimen; Z99.3 Dependence on wheelchair; Z80.1 Family history of malignant neoplasm of trachea, bronchus and lung; Z79.899 Other long term (current) drug therapy; Z68.21 Body mass index [BMI] 21.0-21.9, adult
CPT/HCPCS: 71045; 80053; 81001; 82550; 83605; 83690; 83880; 84132; 84484; 85025; 87040; 93005; 93306; 99285; G0480; J1644; 36415-L1; 36415-TC

== ENCOUNTER 2021-07-14 16:28 | Emergency (ER) | payer MEDICARE, OTHER ==
[~2021-07-14] VITALS: Ht 185.4 cm; Wt 63.6 kg
[~2021-07-14 16:28] MED LIST changes: -AMLO-258 PO; -LISI-894 PO; -METO25 PO
[2021-07-14 17:52] LABS: BASOPHILS % (AUTO) 0.8 % (0.0-2.0); EOSINOPHILS % (AUTO) 0.7 % (1.0-6.0); HEMATOCRIT 34.8 % (41-53); HEMOGLOBIN 11.4 g/dL (13.5-17.5); LYMPHOCYTES % (AUTO) 37.3 % (22.0-44.0); MEAN CORPUSCULAR HEMOGLOBIN 27.8 pg (26.0-34.0); MEAN CORPUSCULAR HGB CONC 32.7 G/dL (31.0-37.0); MEAN CORPUSCULAR VOLUME 85 fL (80-100); MONOCYTES # (AUTO) 0.3 K/uL (0.1-1.0); MONOCYTES % (AUTO) 5.8 % (2.0-9.0); NEUTROPHILS % (AUTO) 55.4 % (40.0-70.0); PLATELET COUNT (AUTO) 262 K/uL (150-450); RED BLOOD CELL COUNT(AUTO) 4.09 MIL/uL (4.50-5.90); RED CELL DISTRIBUTION WIDTH 17.1 % (11.5-14.5)
[2021-07-14 18:02] LABS: ANION GAP 4 mmol/L (8-16); CALCIUM, TOTAL 9.4 mg/dL (8.8-10.5); CARBON DIOXIDE 29 mmol/L (22-29); CHLORIDE 105 mmol/L (98-107); CREATININE 1.38 mg/dL (0.60-1.30); GLUCOSE,RANDOM 81 mg/dL (70-110); POTASSIUM 4.7 mmol/L (3.5-5.1); SODIUM SERUM 138 mmol/L (136-145); UREA NITROGEN, BLOOD 31 mg/dL (7-18)
[2021-07-14 18:07] LABS: GLOMERULAR FILTR. RATE CALC > 60 mL/min (>60)
[2021-07-14 18:20] VITALS: BP 130/63
[2021-07-14 18:23] LABS: B-TYPE NATRIURETIC PEPTIDE 21 pg/mL (0-100)
[2021-07-14 18:26] LABS: ALANINE AMINOTRANSFERASE 39 U/L (12-78); ALBUMIN 3.8 g/dL (3.4-5.0); ALKALINE PHOSPHATASE 90 U/L (46-116); ASPARTATE AMINOTRANSFERASE 29 U/L (15-37); BILIRUBIN,TOTAL 0.2 mg/dL (0.1-1.0); CREATINE KINASE, TOTAL ONLY 103 U/L (39-308)
== END 2021-07-14 18:30 | disposition home or self-care (01) ==
LOC: EMS 16:33
DX: R07.89 Other chest pain (principal); I10 Essential (primary) hypertension; F41.9 Anxiety disorder, unspecified; Z79.899 Other long term (current) drug therapy
CPT/HCPCS: 71045; 80053; 82550; 83880; 84484; 85025; 85730; 93005; 99285; 36415-L1; 36415-TC

== ENCOUNTER 2022-01-16 09:53 | Emergency (ER) | payer MEDICARE, OTHER ==
[~2022-01-16] VITALS: Ht 182.9 cm; Wt 77.2 kg
[~2022-01-16 09:53] MED LIST changes: +GABA-1181 PO; +METF-1211 PO; +RIVA10TA PO
[2022-01-16 10:10] VITALS: BP 136/60
== END 2022-01-16 11:20 | disposition home or self-care (01) ==
LOC: EMS 10:23
DX: M62.412 Contracture of muscle, left shoulder (principal); F41.9 Anxiety disorder, unspecified; G89.29 Other chronic pain; Z59.00 Homelessness unspecified; I10 Essential (primary) hypertension; Z86.73 Personal history of transient ischemic attack (TIA), and cerebral infarction without residual deficits
CPT/HCPCS: 99283

== ENCOUNTER 2022-03-07 18:56 | Emergency (ER) | payer MEDICARE, OTHER ==
[~2022-03-07] VITALS: Ht 182.9 cm; Wt 77.5 kg
[~2022-03-07 18:56] MED LIST changes: +ASPI81 PO; -ASPI81TA39 PO; -ATOR40TA28 PO; +ATOR40TA71 PO; -LEVE500T20 PO; +LEVE500T8 PO; +OLAN5TAB52 PO
[2022-03-07 20:30] LABS: BASOPHILS % (AUTO) 0.7 % (0.0-2.0); EOSINOPHILS % (AUTO) 2.2 % (1.0-6.0); HEMATOCRIT 32.3 % (41-53); HEMOGLOBIN 10.5 g/dL (13.5-17.5); LYMPHOCYTES # (AUTO) 1.9 K/uL (1.0-4.8); LYMPHOCYTES % (AUTO) 26.6 % (22.0-44.0); MEAN CORPUSCULAR HEMOGLOBIN 28.7 pg (26.0-34.0); MEAN CORPUSCULAR HGB CONC 32.4 G/dL (31.0-37.0); MEAN CORPUSCULAR VOLUME 88 fL (80-100); MONOCYTES # (AUTO) 0.5 K/uL (0.1-1.0); MONOCYTES % (AUTO) 7.1 % (2.0-9.0); NEUTROPHILS # (AUTO) 4.5 K/uL (1.8-7.7); NEUTROPHILS % (AUTO) 63.4 % (40.0-70.0); PLATELET COUNT (AUTO) 312 K/uL (150-450); RED BLOOD CELL COUNT(AUTO) 3.66 MIL/uL (4.50-5.90); RED CELL DISTRIBUTION WIDTH 14.7 % (11.5-14.5)
[2022-03-07 20:42] LABS: ANION GAP 6 mmol/L (8-16); CALCIUM, TOTAL 9.1 mg/dL (8.8-10.5); CARBON DIOXIDE 29 mmol/L (22-29); CHLORIDE 105 mmol/L (98-107); CREATININE 1.24 mg/dL (0.60-1.30); GLOMERULAR FILTR. RATE CALC > 60 mL/min (>60); GLUCOSE,RANDOM 95 mg/dL (70-110); POTASSIUM 4.1 mmol/L (3.5-5.1); SODIUM SERUM 140 mmol/L (136-145); UREA NITROGEN, BLOOD 16 mg/dL (7-18)
[2022-03-07 20:46] LABS: PROTHROMBIN TIME 10.9 SEC (9.4-11.6)
[2022-03-07 20:47] LABS: ALANINE AMINOTRANSFERASE 13 U/L (12-78); ALBUMIN 3.1 g/dL (3.4-5.0); ALKALINE PHOSPHATASE 77 U/L (46-116); ASPARTATE AMINOTRANSFERASE 16 U/L (15-37); BILIRUBIN,TOTAL 0.2 mg/dL (0.1-1.0); TOTAL PROTEIN, SERUM 6.6 g/dL (6.4-8.2)
[2022-03-08] MEDS ORDERED: LevETIRAcetam 1,000 MG in DEXTROSE 5%-WATER 100 ML IV ONE ×2
[2022-03-08] MEDS ORDERED: SODIUM CHLORIDE 0.9% 1,000 ML IV ONE
[2022-03-08] MEDS ORDERED: LevETIRAcetam 500 MG TABLET PO ONE (00:45)
[2022-03-08 05:32] LABS: APPEARANCE,URINE CLEAR (CLEAR); BILIRUBIN,URINE NEGATIVE (NEGATIVE); GLUCOSE, URINE (UA) NEGATIVE (NEGATIVE); KETONES,URINE NEGATIVE (NEGATIVE); LEUKOCYTE ESTERASE ,URINE NEGATIVE (NEGATIVE); NITRATE,URINE NEGATIVE (NEGATIVE); OCCULT BLOOD,URINE NEGATIVE (NEGATIVE); PROTEIN,URINE NEGATIVE (NEGATIVE); UROBILINOGEN,URINE <=1.0 mg/dL (<=1.0)
[2022-03-08 11:35] VITALS: BP 147/86
[2022-03-08] MEDS ORDERED: LEVE500T20 PO (11:49)
[2022-03-08] MEDS ORDERED: OLAN5TAB52 PO (11:49)
[2022-03-08] MEDS ORDERED: RIVA10TA PO (11:49)
== END 2022-03-08 12:34 | disposition home or self-care (01) ==
LOC: EMS 18:56
DX: G40.909 Epilepsy, unspecified, not intractable, without status epilepticus (principal); F41.9 Anxiety disorder, unspecified; I10 Essential (primary) hypertension; Z86.69 Personal history of other diseases of the nervous system and sense organs; Z87.39 Personal history of other diseases of the musculoskeletal system and connective tissue; Z86.79 Personal history of other diseases of the circulatory system; Z59.00 Homelessness unspecified
CPT/HCPCS: 99285; 70450; 71045; 80053; 81003; 85025; 85610; 85730; 36415; 93005; J0712; J7060

== ENCOUNTER 2023-01-28 19:46 | Emergency (ER) | payer MEDICARE, OTHER ==
[~2023-01-28] VITALS: Ht 182.9 cm; Wt 84.1 kg
[~2023-01-28 19:46] MED LIST changes: +DULO-114 PO; +LEVE500T20 PO; -LEVE500T8 PO; +TRAZ-252 PO
[2023-01-29] MEDS ORDERED: TraMADol HCL 50 MG TABLET PO ONE (01:00)
[2023-01-29 10:23] VITALS: TEMP 97.9
[2023-01-29 12:25] VITALS: BP 125/60; PULSE 70; RESP 18
== END 2023-01-29 01:22 | disposition home or self-care (01) ==
LOC: EMS 19:51
DX: S80.02XA Contusion of left knee, initial encounter (principal); F41.9 Anxiety disorder, unspecified; I10 Essential (primary) hypertension; W05.0XXA Fall from non-moving wheelchair, initial encounter; Y93.89 Activity, other specified; Y92.89 Other specified places as the place of occurrence of the external cause; Y99.8 Other external cause status
CPT/HCPCS: 99285; 73562-TC; Z7502; Z7610

== ENCOUNTER 2023-03-17 03:49 | Inpatient (IN) | payer MEDICARE, OTHER ==
[~2023-03-17] VITALS: Ht 182.9 cm; Wt 91.7 kg
[2023-03-17 05:00] LABS: COVID AG,FIA SOURCE NASAL SWAB
[2023-03-17 05:08] LABS: SARS-COV2 (COVID) ANTIGEN,FIA Negative (Negative)
[2023-03-17 05:48] LABS: BASOPHILS % (AUTO) 0.4 % (0.0-2.0); EOSINOPHILS % (AUTO) 1.8 % (1.0-6.0); HEMATOCRIT 37.5 % (41-53); HEMOGLOBIN 12.4 g/dL (13.5-17.5); LYMPHOCYTES % (AUTO) 34.2 % (22.0-44.0); MEAN CORPUSCULAR HEMOGLOBIN 29.4 pg (26.0-34.0); MEAN CORPUSCULAR HGB CONC 33.2 G/dL (31.0-37.0); MEAN CORPUSCULAR VOLUME 89 fL (80-100); MONOCYTES # (AUTO) 0.4 K/uL (0.1-1.0); MONOCYTES % (AUTO) 6.9 % (2.0-9.0); NEUTROPHILS # (AUTO) 3.3 K/uL (1.8-7.7); NEUTROPHILS % (AUTO) 56.7 % (40.0-70.0); PLATELET COUNT (AUTO) 222 K/uL (150-450); RED BLOOD CELL COUNT(AUTO) 4.24 MIL/uL (4.50-5.90); RED CELL DISTRIBUTION WIDTH 15.2 % (11.5-14.5); WHITE BLOOD COUNT (AUTO) 5.8 K/uL (4.5-11.0)
[2023-03-17 05:52] LABS: ANION GAP 9 mmol/L (8-16); CALCIUM, TOTAL 8.9 mg/dL (8.8-10.5); CARBON DIOXIDE 25 mmol/L (22-29); CHLORIDE 105 mmol/L (98-107); CREATININE 1.19 mg/dL (0.60-1.30); GLOMERULAR FILTR. RATE CALC > 60 mL/min (>60); GLUCOSE,RANDOM 98 mg/dL (70-110); SODIUM SERUM 139 mmol/L (136-145); UREA NITROGEN, BLOOD 18 mg/dL (7-18)
[2023-03-17 05:58] LABS: ALANINE AMINOTRANSFERASE 21 U/L (12-78); ALBUMIN 3.6 g/dL (3.4-5.0); ALKALINE PHOSPHATASE 79 U/L (46-116); ASPARTATE AMINOTRANSFERASE 33 U/L (15-37); BILIRUBIN,TOTAL 0.5 mg/dL (0.1-1.0); TOTAL PROTEIN, SERUM 7.3 g/dL (6.4-8.2)
[2023-03-17 06:00] LABS: APPEARANCE,URINE CLEAR (CLEAR); BILIRUBIN,URINE NEGATIVE (NEGATIVE); COLOR,URINE YELLOW (YELLOW); GLUCOSE, URINE (UA) NEGATIVE (NEGATIVE); KETONES,URINE TRACE mg/dL (NEGATIVE); LEUKOCYTE ESTERASE ,URINE TRACE (NEGATIVE); NITRATE,URINE NEGATIVE (NEGATIVE); OCCULT BLOOD,URINE NEGATIVE (NEGATIVE); PH,URINE 5.5 (5.0-8.0); PH,URINE DRUG SCREEN 5.5 (5.0-8.0); PROTEIN,URINE TRACE mg/dL (NEGATIVE); SPECIFIC GRAVITIY, URINE 1.026 (1.003-1.030); UROBILINOGEN,URINE <=1.0 mg/dL (<=1.0)
[2023-03-17 06:02] LABS: ALCOHOL, BLOOD (SERUM) < 3 mg/dL (0-10)
[2023-03-17 06:06] LABS: ALCOHOL, URINE DRUG SCREEN NEGATIVE (NEGATIVE); AMPHET/METH SCREEN,URINE NEGATIVE (NEGATIVE); BARBITURATE SCREEN, URINE NEGATIVE (NEGATIVE); BENZODIAZEPINES SCREEN,URINE NEGATIVE (NEGATIVE); CANNABINOID SCREEN,URINE POSITIVE (NEGATIVE); COCAINE SCREEN,URINE NEGATIVE (NEGATIVE); METHADONE SCREEN, URINE NEGATIVE (NEGATIVE); OPIATE SCREEN,URINE POSITIVE (NEGATIVE); PHENCYCLIDINE SCREEN,URINE NEGATIVE (NEGATIVE)
[2023-03-17 06:06] LABS: TROPONIN I-HIGH SENSITIVITY 11 ng/L (<76)
[2023-03-17 06:39] LABS: BACTERIA,URINE None Seen /HPF (None Seen); RBC,URINE None Seen /HPF (0-2); SQUAMOUS EPITHELIAL CELL,UR Few /LPF (None Seen); WBC,URINE 0-2 /HPF (0-5)
[2023-03-17] MEDS ORDERED: GABAPENTIN 300 MG CAPSULE PO ONE (06:45)
[2023-03-17] MEDS ORDERED: OLANZapine 5 MG TABLET PO ONE (06:45)
[2023-03-17] MEDS ORDERED: LevETIRAcetam 500 MG TABLET PO ONE (06:45)
[2023-03-17] MEDS ORDERED: RIVAROXABAN 20 MG TABLET PO ONE (06:45)
[2023-03-17] MEDS ORDERED: ACETAMINOPHEN 325 MG TABLET PO PRN ×2 (14:00→14:30)
[2023-03-17] MEDS ORDERED: 0.9% SODIUM CHLORIDE 10 ML SYRINGE IVP PRN (14:00)
[2023-03-17] MEDS ORDERED: ONDANSETRON HCL 4 MG/2 ML VIAL IVP PRN ×2 (14:00→14:30)
[2023-03-17] MEDS ORDERED: BISACODYL 10 MG RECTAL RECTAL SUPPOSITORY PR PRN (14:30)
[2023-03-17] MEDS ORDERED: MORPHINE SULFATE 2 MG/ML SYRINGE IVP PRN (14:30)
[2023-03-17] MEDS ORDERED: ZOLPIDEM TARTRATE 5 MG TABLET PO PRN (14:30)
[2023-03-17] MEDS ORDERED: HYDROCODONE/ACETAMINOPHEN 5-325 MG TABLET PO PRN (14:30)
[2023-03-17] MEDS ORDERED: MAGNESIUM HYDROXIDE SUSPENSION 30 ML UDCUP PO PRN (14:30)
[2023-03-17] MEDS: MetFORMIN HCL 500 MG TABLET PO SCH (16:27)
[2023-03-17] MEDS: GABAPENTIN 300 MG CAPSULE PO SCH ×2 (16:27→21:49)
[2023-03-17] MEDS: RIVAROXABAN 10 MG TABLET PO SCH (17:15)
[2023-03-17 21:26] VITALS: BP 154/79; PULSE 79; RESP 19; TEMP 97.9
[2023-03-17] MEDS: ATORVASTATIN CALCIUM 40 MG TABLET PO SCH (21:49)
[2023-03-17] MEDS: DOCUSATE SODIUM 100 MG CAPSULE PO SCH (21:49)
[2023-03-17] MEDS: LevETIRAcetam 500 MG TABLET PO SCH (21:50)
[2023-03-17] MEDS: OLANZapine 5 MG TABLET PO SCH (21:50)
[2023-03-17] MEDS: TraZODone HCL 50 MG TABLET PO SCH (21:50)
[2023-03-18 03:25] VITALS: BP 109/51; PULSE 86; RESP 18; TEMP 98.1
[2023-03-18] MEDS ORDERED: PNEUMOCOCCAL VACCINE POLYVALENT 0.5 ML SYRINGE [PPSV23] IM. ONE (04:15)
[2023-03-18] MEDS: ASPIRIN 81 MG CHEWABLE TABLET PO SCH (08:04)
[2023-03-18] MEDS: LevETIRAcetam 500 MG TABLET PO SCH ×2 (08:04→20:16)
[2023-03-18] MEDS: GABAPENTIN 300 MG CAPSULE PO SCH ×3 (08:04→20:16)
[2023-03-18] MEDS: PANTOPRAZOLE SODIUM 40 MG DR TABLET PO SCH (08:05)
[2023-03-18] MEDS: DOCUSATE SODIUM 100 MG CAPSULE PO SCH ×2 (08:05→20:16)
[2023-03-18] MEDS: OLANZapine 5 MG TABLET PO SCH ×2 (08:05→20:16)
[2023-03-18] MEDS: MetFORMIN HCL 500 MG TABLET PO SCH ×2 (08:05→17:12)
[2023-03-18] MEDS: FAMOTIDINE 20 MG TABLET PO SCH (08:05)
[2023-03-18] MEDS: DULoxetine HCL 30 MG CAPSULE PO SCH (08:06)
[2023-03-18 09:22] VITALS: BP 127/57; PULSE 79; RESP 18; TEMP 98.1
[2023-03-18 15:47] VITALS: BP 133/63; PULSE 84; RESP 20; TEMP 97.9
[2023-03-18] MEDS: RIVAROXABAN 10 MG TABLET PO SCH (17:12)
[2023-03-18 20:11] VITALS: BP 129/59; PULSE 80; RESP 18; TEMP 98.4
[2023-03-18] MEDS: ATORVASTATIN CALCIUM 40 MG TABLET PO SCH (20:16)
[2023-03-18] MEDS: TraZODone HCL 50 MG TABLET PO SCH (20:16)
[2023-03-18] MEDS ORDERED: LORazepam 2 MG/ML VIAL IM ONE (20:30)
[2023-03-18] MEDS ORDERED: LORazepam 1 MG TABLET PO ONE (21:00)
[2023-03-19 04:53] VITALS: BP 130/61; PULSE 81; RESP 20; TEMP 97.8
[2023-03-19] MEDS: MetFORMIN HCL 500 MG TABLET PO SCH (08:00)
[2023-03-19] MEDS: LevETIRAcetam 500 MG TABLET PO SCH (08:17)
[2023-03-19] MEDS: GABAPENTIN 300 MG CAPSULE PO SCH (08:17)
[2023-03-19] MEDS: FAMOTIDINE 20 MG TABLET PO SCH (08:18)
[2023-03-19] MEDS: OLANZapine 5 MG TABLET PO SCH (08:18)
[2023-03-19] MEDS: PANTOPRAZOLE SODIUM 40 MG DR TABLET PO SCH (08:18)
[2023-03-19] MEDS: DULoxetine HCL 30 MG CAPSULE PO SCH (08:18)
[2023-03-19] MEDS: ASPIRIN 81 MG CHEWABLE TABLET PO SCH (08:20)
[2023-03-19] MEDS: DOCUSATE SODIUM 100 MG CAPSULE PO SCH (08:21)
[2023-03-19 08:55] VITALS: BP 137/75; PULSE 85; RESP 19; TEMP 98.4
== END 2023-03-19 15:06 | disposition left against medical advice (07) | DRG 92 ==
LOC: EMS 03:49 → AHU 14:00 → 6S 18:18
PROVIDERS: ADMIT Internal Medicine; ATTEND Internal Medicine
DX: G92.9 Unspecified toxic encephalopathy (principal); E44.0 Moderate protein-calorie malnutrition; F20.0 Paranoid schizophrenia; Z59.00 Homelessness unspecified; E11.9 Type 2 diabetes mellitus without complications; E78.5 Hyperlipidemia, unspecified; F12.90 Cannabis use, unspecified, uncomplicated; G40.909 Epilepsy, unspecified, not intractable, without status epilepticus; R62.7 Adult failure to thrive; K21.9 Gastro-esophageal reflux disease without esophagitis; Z53.29 Procedure and treatment not carried out because of patient's decision for other reasons; I10 Essential (primary) hypertension; F17.210 Nicotine dependence, cigarettes, uncomplicated; F41.9 Anxiety disorder, unspecified; Z79.899 Other long term (current) drug therapy; Z99.3 Dependence on wheelchair; Z68.27 Body mass index [BMI] 27.0-27.9, adult; Z79.01 Long term (current) use of anticoagulants; Z71.51 Drug abuse counseling and surveillance of drug abuser; Z71.6 Tobacco abuse counseling; I69.334 Monoplegia of upper limb following cerebral infarction affecting left non-dominant side
CPT/HCPCS: 70450; 80053; 80307; 81001; 84484; 85025; 97161; 99285; G0480